=== PATIENT | male | born 1970 | race Caucasian/White ===

== ENCOUNTER 2018-08-16 15:10 | Emergency (ER) | payer SELFPAY ==
[~2018-08-16] VITALS: Ht 180.3 cm; Wt 66.9 kg
[2018-08-16 15:16] VITALS: BP 127/89
[2018-08-16] MEDS ORDERED: CEFTRIAXONE 250 MG IM ONE (15:30)
[2018-08-16] MEDS ORDERED: AZITHROMYCIN 500 MG TABLET PO ONE (15:30)
[2018-08-16] MEDS ORDERED: CEFTRIAXONE 250 MG ONE (15:40)
[2018-08-16] MEDS ORDERED: AZITHROMYCIN 500 MG TABLET ONE (15:40)
[2018-08-16] MEDS ORDERED: LIDOCAINE-MPF 1%, 5ML ONE (15:40)
== END 2018-08-16 16:07 | disposition home or self-care (01) ==
LOC: ED 16:01
DX: A53.9 Syphilis, unspecified (principal)
CPT/HCPCS: 96372; 99283; J0696